=== PATIENT | female | born 1975 | race Asian ===

== ENCOUNTER → 2017-06-01 | Outpatient (CLI) | payer BC | LOC: CLAB 09:27 → EDSTATUS 09:32 → CIMAGING 09:32 | PROVIDERS: ATTEND Family Medicine | DX: M54.2 Cervicalgia (principal); V89.2XXA Person injured in unspecified motor-vehicle accident, traffic, initial encounter | CPT/HCPCS: 72040-PO ==

== ENCOUNTER → 2017-10-28 | Outpatient (CLI) | payer BC | LOC: CLAB 12:27 → EDSTATUS 12:33 → CIMAGING 12:34 | PROVIDERS: ATTEND Family Medicine | DX: J45.909 Unspecified asthma, uncomplicated (principal) | CPT/HCPCS: 71046-PO ==